=== PATIENT | female | born 1985 | race African-American/Black ===

== ENCOUNTER 2019-01-12 15:47 | Emergency (ER) | payer OTHER ==
[~2019-01-12] VITALS: Ht 154.9 cm; Wt 60.8 kg
[2019-01-12 16:06] VITALS: BP 119/84
== END 2019-01-12 17:50 | disposition home or self-care (01) ==
LOC: ER 15:47
DX: S09.8XXA Other specified injuries of head, initial encounter (principal); W22.8XXA Striking against or struck by other objects, initial encounter; Y93.89 Activity, other specified; Y92.89 Other specified places as the place of occurrence of the external cause; Y99.8 Other external cause status